=== PATIENT | male | born 2000 | race Caucasian/White ===

== ENCOUNTER 2019-06-28 03:07 | Emergency (ER) | payer BC ==
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
== END 2019-06-28 04:29 | disposition home or self-care (01) ==
LOC: ER 03:07
DX: S60.212A Contusion of left wrist, initial encounter (principal); S63.502A Unspecified sprain of left wrist, initial encounter; S61.215A Laceration without foreign body of left ring finger without damage to nail, initial encounter; V86.65XA Passenger of 3- or 4- wheeled all-terrain vehicle (ATV) injured in nontraffic accident, initial encounter; F17.290 Nicotine dependence, other tobacco product, uncomplicated
CPT/HCPCS: 99284